=== PATIENT | female | born 1955 | race Caucasian/White ===

== ENCOUNTER 2024-11-16 12:17 | Emergency (ER) | payer MEDICARE ==
[~2024-11-16] VITALS: Ht 165.1 cm; Wt 80.0 kg
[2024-11-16 12:24] VITALS: O2SAT 99
[2024-11-16] MEDS: HALOPERIDOL LACTATE 5MG/ML VIAL IM ONE ×2 (12:45→15:48)
[2024-11-16 13:18] LABS: BASOPHILS % 0.9 % (0.0-2.0); EOSINOPHILS % 3.3 % (0.0-5.0); HEMATOCRIT. 35.1 % (36.0-48.0); HEMOGLOBIN. 11.2 g/dL (12.0-16.0); LYMPHOCYTES % 24.2 % (20.0-50.0); MEAN PLATELET VOLUME 10.8 fl (7.4-10.4); MONOCYTES % 4.9 % (2.0-8.0); NEUTROPHILS % 66.7 % (40.0-76.0); PLATELET 197 x1000/uL (130-400); RED BLOOD CELL COUNT 4.08 mill/uL (4.2-5.4); RED CELL DISTRIBUTION WIDTH 15.7 % (11.6-14.6)
[2024-11-16 13:31] LABS: CREATININE 0.7 mg/dL (0.6-1.0)
[2024-11-16 13:32] LABS: UREA NITROGEN BLOOD 7 mg/dL (9-23)
[2024-11-16 13:33] LABS: TROPONIN I HIGH SENSITIVITY 4 ng/L (3.0-34)
[2024-11-16] MEDS: HYDRALAZINE 20MG/ML VIAL IV ONE (13:50)
[2024-11-16] MEDS: DIPHENHYDRAMINE 50MG/ML VIAL IV ONE (13:51)
[2024-11-16] MEDS: KETOROLAC 30MG/ML VIAL IV ONE (13:51)
[2024-11-16] MEDS: LORAZEPAM 2MG/ML UD SYRINGE IV SCH (15:47)
[2024-11-16] MEDS ORDERED: DIPH50CA42 MT (16:28)
[2024-11-16] MEDS ORDERED: CELE100C MT (16:28)
[2024-11-16] MEDS ORDERED: ONDA-241 MT (16:34)
[2024-11-16 18:13] VITALS: TEMP 36.7
[2024-11-16 19:53] VITALS: BP 116/54; PULSE 65; RESP 16; O2SAT 96
== END 2024-11-16 19:54 | disposition home or self-care (01) ==
LOC: ER 12:17
DX: R51.9 Headache, unspecified (principal); R42 Dizziness and giddiness; I10 Essential (primary) hypertension
CPT/HCPCS: 99285; 96374; 96375; 70450; 71045; 80048; 85025; 84484; 36415; 93005; 96372; J1885; J1200; J1630; J0360; J2060